=== PATIENT | male | born 1990 | race African-American/Black ===

== ENCOUNTER 2022-09-07 09:48 | Emergency (ER) | payer OTHER ==
[~2022-09-07] VITALS: Ht 190.5 cm; Wt 82.8 kg
[2022-09-07 09:49] VITALS: BP 115/67
[2022-09-07] MEDS ORDERED: INDOMETHACIN 25 MG CAP PO ONE (12:10)
[2022-09-07 12:44] LABS: BASO % 0.9 % (0.0-1.0); EOS # 0.1 10^3/uL (0.0-0.5); EOS % 2.3 % (0.0-3.0); HEMATOCRIT 43.9 % (42.0-52.0); HEMOGLOBIN 13.9 g/dl (13.5-17.5); LYMPH # 1.5 10^3/uL (1.5-5.0); LYMPH % 35.2 % (24.0-44.0); MEAN CORPUSCULAR HEMOGLOBIN 26.8 pg (27.0-33.0); MEAN CORPUSCULAR HGB CONC 31.7 g/dl (32.0-36.5); MEAN CORPUSCULAR VOLUME 84.6 fl (80.0-96.0); MONO # 0.5 10^3/uL (0.0-0.8); MONO % 10.6 % (2.0-8.0); NEUTROPHILS # 2.2 10^3/uL (1.5-8.5); PLATELET COUNT, AUTOMATED 196 10^3/uL (150-450); RED BLOOD COUNT 5.19 10^6/uL (4.30-6.10); WHITE BLOOD COUNT 4.4 10^3/uL (4.0-10.0)
[2022-09-07 13:14] LABS: C REACTIVE PROTEIN QUANTITATIV < 0.40 MG/DL (<1.0)
[2022-09-07 13:15] LABS: BLOOD UREA NITROGEN 16 MG/DL (9-23); CALCIUM LEVEL 9.3 MG/DL (8.5-10.1); CARBON DIOXIDE LEVEL 31 MMOL/L (20-31); CHLORIDE LEVEL 104 MMOL/L (98-107); CREATININE FOR GFR 0.97 MG/DL (0.70-1.30); GLOMERULAR FILTRATION RATE > 60.0 (>60); GLUCOSE, FASTING 80 MG/DL (60-100); POTASSIUM SERUM 4.1 MMOL/L (3.5-5.1); SODIUM LEVEL 138 MMOL/L (136-145)
[2022-09-07 13:26] LABS: URIC ACID 5.8 MG/DL (3.7-9.2)
[2022-09-07 13:27] LABS: ERYTHROCYTE SEDIMENTATION RATE 6 mm/hr (0-15)
[2022-09-07] MEDS ORDERED: INDO50CA91 PO (13:37)
== END 2022-09-07 13:48 | disposition home or self-care (01) ==
LOC: M ED 09:48
DX: M17.12 Unilateral primary osteoarthritis, left knee (principal); M25.462 Effusion, left knee

== ENCOUNTER 2022-09-28 08:20 | Emergency (ER) | payer OTHER ==
[~2022-09-28] VITALS: Ht 190.5 cm; Wt 84.3 kg
[~2022-09-28 08:20] MED LIST: INDO50CA91 PO
[2022-09-28] MEDS ORDERED: NAPR-885 (08:27)
[2022-09-28 08:59] VITALS: BP 128/71
== END 2022-09-28 09:04 | disposition home or self-care (01) ==
LOC: M ED 08:20
DX: M25.562 Pain in left knee (principal)

== ENCOUNTER 2022-10-17 12:46 | Emergency (ER) | payer OTHER ==
[~2022-10-17] VITALS: Ht 190.5 cm; Wt 84.0 kg
[~2022-10-17 12:46] MED LIST changes: +NAPR-885
[2022-10-17] MEDS ORDERED: ACET-1379 (13:02)
[2022-10-17] MEDS ORDERED: [UNRECOGNIZED DRUG - CODE] (13:02)
[2022-10-17 13:30] LABS: BASO % 1.1 % (0.0-1.0); EOS # 0.1 10^3/uL (0.0-0.5); EOS % 3.2 % (0.0-3.0); HEMATOCRIT 43.1 % (42.0-52.0); HEMOGLOBIN 13.7 g/dl (13.5-17.5); LYMPH # 1.5 10^3/uL (1.5-5.0); LYMPH % 39.2 % (24.0-44.0); MEAN CORPUSCULAR HEMOGLOBIN 26.1 pg (27.0-33.0); MEAN CORPUSCULAR HGB CONC 31.8 g/dl (32.0-36.5); MEAN CORPUSCULAR VOLUME 82.3 fl (80.0-96.0); MONO # 0.4 10^3/uL (0.0-0.8); MONO % 10.8 % (2.0-8.0); NEUTROPHILS # 1.7 10^3/uL (1.5-8.5); NEUTROPHILS % 45.4 % (36.0-66.0); PLATELET COUNT, AUTOMATED 185 10^3/uL (150-450); RED BLOOD COUNT 5.24 10^6/uL (4.30-6.10); WHITE BLOOD COUNT 3.7 10^3/uL (4.0-10.0)
[2022-10-17 13:36] LABS: APPEARANCE, URINE CLEAR (CLEAR); BACTERIA, URINE AUTO NEGATIVE (NEGATIVE); BILIRUBIN, URINE AUTO NEGATIVE (NEGATIVE); BLOOD, URINE BLOOD NEGATIVE (NEGATIVE); COLOR, URINE STRAW (YELLOW); GLUCOSE, URINE (UA) AUTO NEGATIVE (NEGATIVE); KETONE, URINE AUTO NEGATIVE (NEGATIVE); LEUKOCYTE ESTERASE, URINE AUTO NEGATIVE (NEGATIVE); NITRITE, URINE AUTO NEGATIVE (NEGATIVE); PROTEIN, URINE AUTO NEGATIVE (NEGATIVE); RBC, URINE AUTO 0 /HPF (0-3); SPECIFIC GRAVITY URINE AUTO 1.006 (1.002-1.035); SQUAMOUS EPITHELIAL CELL UR AU 0 /HPF (0-6); UROBILINOGEN, URINE AUTO 0.2 mg/dL (0.0-2.0); WBC, URINE AUTO 0 /HPF (0-3)
[2022-10-17 13:52] LABS: ETHYL ALCOHOL (ETHANOL) < 0.003 % (0.000-0.010)
[2022-10-17 13:54] LABS: ALBUMIN 3.9 G/DL (3.2-5.2); ALKALINE PHOSPHATASE 85 U/L (46-116); ALT/SGPT 41 U/L (7.0-40); AST/SGOT 41 U/L (<34); BILIRUBIN,DIRECT 0.1 MG/DL (<0.4); BILIRUBIN,TOTAL 0.4 MG/DL (0.3-1.2); BLOOD UREA NITROGEN 12 MG/DL (9-23); CALCIUM LEVEL 8.6 MG/DL (8.5-10.1); CARBON DIOXIDE LEVEL 26 MMOL/L (20-31); CHLORIDE LEVEL 105 MMOL/L (98-107); CREATININE FOR GFR 1.15 MG/DL (0.70-1.30); GLOMERULAR FILTRATION RATE > 60.0 (>60); GLUCOSE, FASTING 93 MG/DL (60-100); MAGNESIUM LEVEL 1.8 MG/DL (1.8-2.4); PHOSPHORUS LEVEL 4.1 MG/DL (2.5-4.9); POTASSIUM SERUM 3.8 MMOL/L (3.5-5.1); SODIUM LEVEL 136 MMOL/L (136-145)
[2022-10-17 14:05] LABS: AMPHETAMINES LEVEL URINE NEGATIVE (NEGATIVE); BARBITURATES URINE NEGATIVE (NEGATIVE); BENZODIAZEPINES URINE NEGATIVE (NEGATIVE); COCAINE METABOLITE URINE NEGATIVE (NEGATIVE); METHADONE URINE NEGATIVE (NEGATIVE)
[2022-10-17 14:06] LABS: CANNABINOIDS URINE NEGATIVE (NEGATIVE); OPIATES URINE NEGATIVE (NEGATIVE); PHENCYCLIDINE URINE NEGATIVE (NEGATIVE)
[2022-10-17] MEDS ORDERED: CALCIUM GLUCONATE 1,000 MG in D5W MINI-BAG PLUS 100 ML IV ONE (15:10)
[2022-10-17 15:46] LABS: PTH INTACT 36.1 PG/ML (18.5-88.0)
[2022-10-17] MEDS ORDERED: KETOROLAC 30 MG/ML 1ML VIAL IV ONE (17:30)
[2022-10-17 18:19] VITALS: BP 100/69; TEMP 98.2; O2SAT 100
== END 2022-10-17 18:40 | disposition home or self-care (01) ==
LOC: M ED 12:46 → EDBD 12:46 → M ED 18:40
DX: R56.9 Unspecified convulsions (principal); R73.03 Prediabetes; Z79.899 Other long term (current) drug therapy
CPT/HCPCS: 70450; 80048; 80076; 80307; 81001; 82077; 82140; 82330; 83605; 83735; 83970; 84100; 85025; 87486; 87581; 87633; 87798; 93041; 94760; 96374; 99285; J0612; J1885

== ENCOUNTER 2022-12-09 13:57 | Emergency (ER) | payer OTHER ==
[~2022-12-09] VITALS: Ht 190.5 cm; Wt 83.6 kg
[~2022-12-09 13:57] MED LIST changes: +ACET-1379; +[UNRECOGNIZED DRUG - CODE]
[2022-12-09 13:58] VITALS: BP 112/66; TEMP 98.2; O2SAT 100
[2022-12-09] MEDS ORDERED: SUMA50TA2 PO (14:09)
[2022-12-09] MEDS ORDERED: BENZ200C70 PO (17:55)
[2022-12-09] MEDS ORDERED: IBUP-1022 PO (17:55)
== END 2022-12-09 18:01 | disposition home or self-care (01) ==
LOC: M ED 13:57
DX: B34.9 Viral infection, unspecified (principal); R05.9 Cough, unspecified; R51.9 Headache, unspecified